=== PATIENT | female | born 1970 | race Caucasian/White ===

== ENCOUNTER → 2021-03-20 | Outpatient (CLI) | payer MEDICARE ==
[2021-03-21 11:14] LABS: RHEUMATOID ARTHRITIS FACTOR <10.0 IU/mL (0.0-13.9)
== END ==
LOC: LAB 13:52
PROVIDERS: Nurse Practitioner Family
DX: M79.18 Myalgia, other site (principal); M25.50 Pain in unspecified joint
CPT/HCPCS: 36415; 73630; 82550; 82728; 83520; 85652; 86140; 86200; 86431